=== PATIENT | female | born 1985 | race Two or more races ===

== ENCOUNTER 2016-07-22 10:34 | Emergency (ER) | payer MEDICAID ==
[~2016-07-22 10:34] MED LIST: BACTRIM DS TAB1 EAC2 PO; COLACE100 M1 PO; FEOSOL325 M1 PO; FLAGYL500 M1 PO; HEADACHE MEDICINE; IBUPROFEN600 M1 PO; IBUPROFEN800 M1 PO; METHYLDOPA250 M1 PO; NO HOME MEDICATION XX; PERCOCET 5-3251 EACH PO; PRENATAL VITAM1 EA11 PO; ZOFRAN ODT4 MG PO
[2016-07-22 11:23] LABS: BASO % 0.7 % (0-2); BASO ABSOLUTE COUNT 0.1 tho/cmm (0.0-0.2); EOS % 0.5 % (0-7); EOSINOPHIL ABSOLUTE COUNT 0.1 tho/cmm (0.0-0.7); HGB-HEMOGLOBIN 14.1 gm/dl (12.0-15.5); IMMATURE GRANULOCYTES ABSOLUTE 0.03 tho/cmm (0-0.03); IMMATURE GRANULOCYTES PERCENT 0.3 % (0-0.3); LYMPH % 34.5 % (20-45); LYMPH ABSOLUTE COUNT 3.7 tho/cmm (0.8-4.5); MCH (MEAN CORPUSCULAR HGB) 27.6 pg (28.0-32.0); MCHC MEAN CORPUSCULAR HGB CONC 34.4 % (32.0-36.0); MCV (MEAN CELL VOLUME) 80.4 fl (82.0-96.0); MEAN PLATELET VOLUME 10.3 cmc (9.4-12.4); MONO % 8.1 % (0-12); MONOCYTE ABSOLUTE COUNT 0.9 tho/cmm (0.0-1.2); NEUTROPHIL ABSOLUTE COUNT 5.9 tho/cmm (1.6-8.0); NEUTROPHIL-AUTOMATED 5.9 tho/cmm (1.6-8.0); NEUTROPHILS % 55.9 % (40-80); PLATELET COUNT 235 tho/cmm (150-450); WHITE BLOOD COUNT 10.6 tho/cmm (4.0-10.0)
[2016-07-22 11:52] LABS: URINE BILIRUBIN NEGATIVE (NEG); URINE BLOOD LARGE (NEG); URINE GLUCOSE (UA) NEGATIVE (NEG); URINE KETONE NEGATIVE (NEG); URINE LEUKOCYTE ESTERASE NEGATIVE (NEG); URINE NITRITE NEGATIVE (NEG); URINE PROTEIN NEGATIVE (NEG)
[2016-07-22 11:54] LABS: URINE APPEARANCE CLEAR; URINE COLOR PALE YELLOW
[2016-07-22 12:09] LABS: URINE WBC 0 /[HPF] (0-5)
[2016-07-22 12:10] LABS: URINE EPITHELIAL CELLS 0-1 /[HPF] (0-10)
== END 2016-07-22 13:59 ==
LOC: EDMED 10:34
PROVIDERS: Nurse Practitioner Family
DX: O20.0 Threatened abortion (principal); Z3A.01 Less than 8 weeks gestation of pregnancy; Z98.890 Other specified postprocedural states